=== PATIENT | male | born 1965 | race Caucasian/White ===

== ENCOUNTER 2023-11-28 15:21 | Outpatient (AMB) | payer OTHER, SELFPAY ==
--- NOTE | 2023-11-28 15:25 | MHC.PC.OV ---
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 Allergies No Known Allergies Allergy (Verified 11/28/23 15:40) Medication List - Last Reconciled 11/28/23 by OH Jones No Known Home Meds Tobacco use date assessed: 11/28/23 Dental Screening Dental Screen Date: 11/28/23 Did you have a dental visit in the last 12 months?: No Did you have a dental problem in the last 6 months where you did not have access to dental care?: No Was dental information given to patient?: No HPI HPI Comments History of Present Illness Details Patient is a 58-year-old male here to establish care. Patient has not seen a primary care provider in over 8 years. Most recent was in [facility]. Will obtain records Patient is due for TD booster will elect to get at local pharmacy. Patient will also get the shingles vaccine. Patient is due for labs including PSA will order today. Patient is due for colonoscopy, will refer. [facility] Medical History (Updated 11/28/23 @ 15:58 by OH Jones) Left hand pain Surgical History History of breast lump/mass excision Social History Housing: House Patient Tobacco Use Status: Former Tobacco user Years Smoked: 30 e-Cigarette/Vaping Use: Never Used service: No Current occupational status: employed Current occupational exposures/hazards: No Cognitive needs: No Hearing needs: No Vision needs: No Questionnaire PHQ-9 Over the last 2 weeks, how often have you been bothered by any of the following problems? 01580 - PHQ-9 Billing: Patient declined-do not bill Source: Developed by Drs. Scott Page, Nidhi Hsu, Luc Lee and colleagues, with an educational maura from [employer]. AUDIT C Alcohol Use Questionnaire (AUDIT-C) 1. How often do you have a drink containing alcohol?: Never 3. How often do you have six or more drinks on one occasion?: Never Total Score: 0 Score Reviewed/Action Taken: No JUAN ANTONIO-7 AMB Questionnaire JUAN ANTONIO-7 Assessment Billing JUAN ANTONIO-7 Assessment Tool: pt declined-do not bill Review of Systems Const All systems reviewed & are unremarkable except as noted in HPI and below ENT Denies dizziness Card Denies chest pain and Denies dyspnea Resp Denies cough, Denies dyspnea and Denies wheezing GI Denies diarrhea, Denies nausea and Denies vomiting Neuro Denies dizziness Psych Denies homicidal ideation and Denies suicidal ideation Endo Denies polydipsia and Denies polyuria Aller/Immun Denies wheezing Physical exam (Primary Care) Vital Signs: Last Vital Signs Pulse 84 11/28/23 15: BP 108/70 11/28/23 15:27 Pulse Ox 96 11/28/23 15:27 Oxygen Delivery Method Room Air 11/28/23 15:27 Care Plan Goal for BP management: Blood pressure stable. Tobacco/Smoking Status: Tobacco use Status Tobacco use date assessed 11/28/23 11/28/23 15:31 Patient Tobacco Use Status Former Tobacco user 11/28/23 15:31 e-Cigarette/Vaping Use Never Used 11/28/23 15:31 Const Other: Appearance: Alert.? Oriented X3.? No acute distress.? Head: Normocephalic, atraumatic, no step-offs or deformities Neck: Normal inspection.? Neck supple.? CVS: Normal heart rate and rhythm.? Pulses normal.? Respiratory: No respiratory distress.? Breath sounds normal.? Neuro: Oriented X 3.? Assessment and Plan Assessment & Plan (1) Encounter to establish care: Comment: Patient has not had primary care provider in 8 years. Will draw fasting labs. Will call patient with results. Patient will have follow-up in 2 months. Code(s): Z76.89 - Persons encountering health services in other specified circumstances Plan: Follow-up exam for physical in 2 months Orders: Orders PSA,Total (Free>4and<10) Today Z12.5 - Encounter for screening for malignant neoplasm of prostate Lipid Panel Today Z13.220 - Encounter for screening for lipoid disorders Vitamin D 25-OH (D2 and D3) Today Z13.21 - Encounter for screening for nutritional disorder UA CC w/rflx Micro + Cult Today Z13.89 - Encounter for screening for other disorder Complete Blood Count Auto Diff Today Z13.0 - Encounter for screening for diseases of the blood and blood-forming organs and certain disorders involving the immune mechanism Comprehensive Met. Panel Today Z91.89 - Other specified personal risk factors, not elsewhere classified Vitamin B6 Today Z13.21 - Encounter for screening for nutritional disorder Vitamin B12 Today Z13.21 - Encounter for screening for nutritional disorder TSH reflex Free T4 Today Z13.29 - Encounter for screening for other suspected endocrine disorder Referrals Gastroenterology Referral Z12.11 - Encounter for screening for malignant neoplasm of colon Coding Level of Care Code Est Pt Level 3 (65258) Diagnoses Encounter to establish care Z76.89 Time Spent (min) 20
[2023-11-28 15:27] VITALS: BP 108/70; PULSE 84; O2SAT 96
== END 2023-11-28 16:35 | disposition home or self-care (01) ==
PROVIDERS: Visit Provider Nurse Practitioner Primary Care
DX: Z76.89 Persons encountering health services in other specified circumstances (principal)
CPT/HCPCS: 99213

== ENCOUNTER 2023-12-02 06:12 | Outpatient (REF) | payer OTHER, SELFPAY ==
[2023-12-02 10:30] LABS: Appearance Urine Clear; Color Urine Yellow; Glucose Urine UA Negative (Negative); Leukocyte Esterase Urine Negative (Negative); Nitrite Urine Negative (Negative); PH 5.5 (5.0-9.0); Urine Blood Negative (Negative); Urine Ketones Negative (Negative); Urine Protein Negative (Neg-Trace)
[2023-12-02 10:42] LABS: MANUAL DIFF FLAG NO
[2023-12-02 10:51] LABS: Basophils Absolute Auto 0.1 X10*3/uL (0.0-0.2); Basophils Percent Auto 0.8 % (0-2); Eosinophils Absolute Auto 0.2 X10*3/uL (0.0-0.4); Eosinophils Percent Auto 2.8 % (0-4); Hematocrit 45.9 % (42.0-52.0); Hemoglobin 15.2 g/dl (14.0-18.0); Imm Gran Abs Auto 0.02 X10*3/uL (0.00-0.03); Imm Gran Pct Auto 0.3 % (0.0-0.4); Lymphocytes Absolute Auto 1.8 X10*3/uL (1.2-4.9); Lymphocytes Percent Auto 27.6 % (20-40); Mean Corpuscular HGB Conc 33.1 g/dl (31.0-36.0); Mean Corpuscular Hemoglobin 29.1 pg (27.0-33.0); Mean Corpuscular Volume 87.8 fL (80.0-98.0); Mean Platelet Volume 9.7 fL (9.4-12.4); Monocytes Absolute Auto 0.6 X10*3/uL (0.1-1.2); Monocytes Percent Auto 8.5 % (2-11); Neutrophils Absolute Auto 3.9 x10*3/uL (2.0-8.3); Platelet Count 251 X10*3/uL (160-400); Red Blood Count 5.23 X10*6/uL (4.60-5.80); White Blood Count 6.5 X10*3/uL (4.8-10.8)
[2023-12-02 11:39] LABS: Alanine Aminotransferase 24 U/L (0-40); Albumin Level 4.1 g/dL (3.5-5.0); Alkaline Phosphatase 67 U/L (39-117); Anion Gap 16 (12-20); Aspartate Amino Transferase 20 U/L (5-37); Bilirubin Total 0.6 mg/dL (0.0-1.0); Blood Urea Nitrogen 17 mg/dL (9-16); Calcium 9.5 mg/dL (8.4-10.2); Carbon Dioxide 25 mmol/L (22-29); Chloride 105 mmol/L (96-108); Cholesterol 250 mg/dL (<200); Estimated Glomerular Filt Rate > 60; Glucose Random 97 mg/dL (60-115); HDL Cholesterol 57 mg/dL (>40); LDL Cholesterol Calculated 174 mg/dL (<100); Potassium 4.6 mmol/L (3.3-5.1); Sodium 141 mmol/L (135-145); Total Protein 7.4 g/dL (6.5-8.0); Triglycerides 97 mg/dL (<150)
[2023-12-02 11:43] LABS: PSA,Total (Free>4and<10) 1.35 ng/mL (0.00-4.00)
[2023-12-02 11:46] LABS: Vitamin B12 395 pg/mL (200-900)
[2023-12-05 16:08] LABS: Vitamin D 25-OH, D2 <4 ng/mL; Vitamin D 25-OH, D3 21 ng/mL; Vitamin D 25-OH, Total 21 ng/mL (30-100)
[2023-12-06 15:14] LABS: Vitamin B6 18.2 ng/mL (2.1-21.7)
== END 2023-12-02 06:13 | disposition home or self-care (01) ==
LOC: HO.HMGCLDS 06:12
PROVIDERS: PCP Nurse Practitioner Primary Care; Visit Provider Nurse Practitioner Primary Care
DX: Z13.0 Encounter for screening for diseases of the blood and blood-forming organs and certain disorders involving the immune mechanism (principal); Z12.5 Encounter for screening for malignant neoplasm of prostate; Z91.89 Other specified personal risk factors, not elsewhere classified; Z13.220 Encounter for screening for lipoid disorders; Z13.29 Encounter for screening for other suspected endocrine disorder; Z13.89 Encounter for screening for other disorder; Z13.21 Encounter for screening for nutritional disorder
CPT/HCPCS: 36415; 80053; 80061; 81003; 82306; 82607; 84153; 84207; 84443; 85025

== ENCOUNTER 2024-01-16 14:48 | Outpatient (AMB) | payer OTHER, SELFPAY ==
--- NOTE | 2024-01-16 14:51 | A.OFFPC_ITS ---
Vital Signs 01/16/24 14:53 Height 5 ft 9 in Weight 223 lb BMI 32.9 BP 128/86 Blood Pressure Location Lt brachial Position Sitting Pulse 70 Pulse Source Pulse Oximeter Pulse Oximetry (%) 95 Oxygen Delivery Method Room Air Intake Visit Reasons: follow up Intake Note: pt is here for his follow up Allergies No Known Allergies Allergy (Verified 01/16/24 15:18) Medication List - Last Reconciled 01/16/24 by OH Jones No Known Home Meds Tobacco use date assessed: 01/16/24 Dental Screening Dental Screen Date: 01/16/24 Did you have a dental visit in the last 12 months?: Yes Did you have a dental problem in the last 6 months where you did not have access to dental care?: No Was dental information given to patient?: Patient has dentist HPI HPI Comments History of Present Illness Details Patient is a 58-year-old male in today for a follow-up regarding his labs. Patient was found to have elevated levels of cholesterol and triglycerides. Patient would not like to start medication at this time and would like to improve his diet and exercise which he feels there is a lot of room for improvement. Patient states he does not need nutritional counseling at this time as he has a good grasp on which foods to avoid. Patient was also found to be vitamin-D deficient. The will start taking vitamin D3 supplement 2000 units per day for the next 3 months and we will redraw. [facility] Medical History (Updated 01/16/24 @ 15:25 by OH Jones) Left hand pain Surgical History History of breast lump/mass excision Social History Housing: House Patient Tobacco Use Status: Former Tobacco user Years Smoked: 30 e-Cigarette/Vaping Use: Never Used service: No Current occupational status: employed Current occupational exposures/hazards: No Cognitive needs: No Hearing needs: No Vision needs: No Review of Systems Const All systems reviewed & are unremarkable except as noted in HPI and below Physical exam (Primary Care) Vital Signs: Last Vital Signs Pulse 70 01/16/24 14:53 BP 128/86 01/16/24 14:53 Pulse Ox 95 01/16/24 14:53 Oxygen Delivery Method Room Air 01/16/24 14:53 Care Plan Goal for BP management: Patient's blood pressure is controlled. BMI result Body Mass Index 32.9 Tobacco/Smoking Status: Tobacco use Status Tobacco use date assessed 01/16/24 01/16/24 14:56 Patient Tobacco Use Status Former Tobacco user 01/16/24 14:56 e-Cigarette/Vaping Use Never Used 01/16/24 14:56 Const Other: Appearance: Alert.? Oriented X3.? No acute distress.? Head: Normocephalic. Eyes: Conjunctiva white. ? Neck: Normal inspection.? Neck supple.? Respiratory: No respiratory distress.? Neuro: Oriented X 3.? Assessment and Plan Assessment & Plan (1) Upper back pain: Comment: Will order cervical spine x-ray. Code(s): M54.9 - Dorsalgia, unspecified (2) Lower back pain: Comment: Will order lumbar spine x-ray. Code(s): M54.50 - Low back pain, unspecified Qualifiers: Chronicity: unspecified Back pain laterality: unspecified Sciatica presence: with sciatica Sciatica laterality: sciatica of left side Qualified Code(s): M54.42 - Lumbago with sciatica, left side Plan: Will re-draw labs. Orders: Orders XR lumbar spine 2-3V Today M54.50 - Low back pain, unspecified XR cervical spine 3V Today M54.9 - Dorsalgia, unspecified Coding Level of Care Code Est Pt Level 3 (18995) Diagnoses Upper back pain M54.9 Low back pain with left-sided sciatica, unspecified back pain laterality, unspecified chronicity M54.42 Chronicity: unspecified Back pain laterality: unspecified Sciatica presence: with sciatica Sciatica laterality: sciatica of left side Time Spent (min) 26
[2024-01-16 14:53] VITALS: BP 128/86; PULSE 70; O2SAT 95; BMI 32.9
== END 2024-01-16 15:19 | disposition home or self-care (01) ==
PROVIDERS: Visit Provider Nurse Practitioner Primary Care
DX: M54.9 Dorsalgia, unspecified (principal); M54.42 Lumbago with sciatica, left side
CPT/HCPCS: 99213

== ENCOUNTER 2024-01-16 15:19 | Outpatient (REF) | payer OTHER, SELFPAY ==
--- NOTE | ~2024-01-16 | XR_ITS ---
EXAMINATION: XR CERVICAL SPINE XR LUMBAR SPINE CLINICAL INDICATION: Low back pain and neck pain. COMPARISON: None available. TECHNIQUE: 2 views of the cervical spine. 3 views of the lumbar spine. FINDINGS: CERVICAL SPINE: Diffuse demineralization. Moderate multilevel cervical spondylosis. Limited visualization of C7 due to overlying bony and soft tissue structures. Amorphous soft tissue calcifications in the right mid cervical region, likely vascular. LUMBAR SPINE: Multiple pelvic calcifications are likely vascular. 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 Diffuse demineralization. Multilevel lumbar spondylosis with moderate loss of disc space height at L4-L5 and L5-S1. Small rounded sclerotic focus overlying the inferior aspect of the L2 vertebral body on the lateral view likely correlates with a 7 mm right upper quadrant calcification. Differential considerations include possible gallstone, renal calcification, or other and dedicated views of the abdomen should be considered for further evaluation. Could represent a bony lesion versus soft tissue calcification. XR/XR cervical spine 2V IMPRESSION: 1. Moderate multilevel cervical spondylosis. 2. Moderate degenerative disc disease at L4-L5 and L5-S1. 3. 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 4. A 7 mm right upper quadrant calcification. Differential considerations include possible gallstone, renal calcification, or other and dedicated views of the abdomen should be considered for further evaluation. Represent a bony lesion, versus soft tissue calcification.
--- NOTE | ~2024-01-16 | XR_ITS ---
EXAMINATION: XR CERVICAL SPINE XR LUMBAR SPINE CLINICAL INDICATION: Low back pain and neck pain. COMPARISON: None available. TECHNIQUE: 2 views of the cervical spine. 3 views of the lumbar spine. FINDINGS: CERVICAL SPINE: Diffuse demineralization. Moderate multilevel cervical spondylosis. Limited visualization of C7 due to overlying bony and soft tissue structures. Amorphous soft tissue calcifications in the right mid cervical region, likely vascular. LUMBAR SPINE: Multiple pelvic calcifications are likely vascular. 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 Diffuse demineralization. Multilevel lumbar spondylosis with moderate loss of disc space height at L4-L5 and L5-S1. Small rounded sclerotic focus overlying the inferior aspect of the L2 vertebral body on the lateral view likely correlates with a 7 mm right upper quadrant calcification. Differential considerations include possible gallstone, renal calcification, or other and dedicated views of the abdomen should be considered for further evaluation. Could represent a bony lesion versus soft tissue calcification. XR/XR lumbar spine 2-3V IMPRESSION: 1. Moderate multilevel cervical spondylosis. 2. Moderate degenerative disc disease at L4-L5 and L5-S1. 3. 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 4. A 7 mm right upper quadrant calcification. Differential considerations include possible gallstone, renal calcification, or other and dedicated views of the abdomen should be considered for further evaluation. Represent a bony lesion, versus soft tissue calcification.
== END 2024-01-16 15:20 | disposition home or self-care (01) ==
LOC: HO.HMGCX 15:19
PROVIDERS: PCP Nurse Practitioner Primary Care; Visit Provider Nurse Practitioner Primary Care
DX: M54.50 Low back pain, unspecified (principal); M54.2 Cervicalgia
CPT/HCPCS: 72040; 72100

== ENCOUNTER 2024-02-06 14:42 | Outpatient (AMB) | payer OTHER, SELFPAY ==
[2024-02-06 14:58] VITALS: BP 118/76; PULSE 75; BMI 33.1
--- NOTE | 2024-02-06 14:58 | MHC.OFFVIS ---
Vital Signs 02/06/24 14:58 Height 5 ft 9 in Weight 223 lb 15.834 oz BMI 33.1 BP 118/76 Blood Pressure Location Lt brachial Position Sitting Pulse 75 Intake Visit Reasons: Colonoscopy Screening Intake Note: Scott presents to in office visit today as a new patient for colonoscopy screening. CC: Patient has never had a colonoscopy done before. He denies having any GI symptoms or concerns today. Gastroenterologist Required: No Accompanied by: Self / Same As Patient Allergies No Known Allergies Allergy (Verified 01/16/24 15:18) HPI HPI Colonoscopy Screening: Details: 58-YEAR-OLD male here for preprocedural meeting to discuss a screening colonoscopy. 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 He denies any bowel or upper GI problems.. There are no prior problems with anesthesia or sedation. He denies any cardiac or respiratory problems. NO ID problems. There is no known FHX or crc or polyps. [facility] Medical History Left hand pain Surgical History H/O partial adrenalectomy S/P correction of deviated nasal septum History of breast lump/mass excision Social History Housing: House Alcohol intake: never Patient Tobacco Use Status: Former Tobacco user Years Smoked: 30 e-Cigarette/Vaping Use: Never Used service: No Current occupational status: employed Current occupational exposures/hazards: No Cognitive needs: No Hearing needs: No Vision needs: No Review of Systems Const Denies fatigue, Denies fever(s), Denies night sweats, Denies poor appetite and Denies weight loss ENT Reports Normal hearing present, Denies dental pain, Denies dysphagia, Denies hearing loss, Denies mouth pain, Denies odynophagia, Denies throat swelling, Denies tongue swelling and Reports other (Dentition adequate) Card Reports no additional complaints Resp Reports no additional complaints GI Details: Denies abdominal pain, Denies melena, Denies bloating, Denies hematochezia, Denies constipation, Denies GI cramping, Denies dysphagia, Denies excessive flatus, Denies early satiety, Denies heartburn, Denies diarrhea, Denies nausea, Denies odynophagia, Denies vomiting and Denies hematemesis Skin/Breast Denies pruritus, Denies lesions, Denies rash and Denies jaundice Neuro Reports Normal hearing present and Denies Abnormal speech present Endo Denies fatigue Aller/Immun Denies throat swelling and Denies tongue swelling Physical Exam Vital Signs: Last Vital Signs Pulse 75 02/06/24 14:58 BP 118/76 02/06/24 14:58 BMI result Body Mass Index 33.1 Const General: cooperative, no acute distress, well developed and well groomed Nutritional Appearance: well nourished and obese Orientation/consciousness: oriented to person, oriented to place and oriented to time Limitations: No language barrier HEENT Head: Yes normocephalic and Yes atraumatic Eyes General: appearance normal, both eyes and all related structures Pupils: Equal, round and reactive pupils present Neck Neck: Yes normal visual inspection and Yes no lymphadenopathy Thyroid: Thyroid normal Resp Effort & Inspection: normal respiratory effort and able to speak in complete sentences Auscultation: clear to auscultation bilaterally Cardio Rate: regular rate Rhythm: regular rhythm Heart sounds: Normal, physiologic split S2 sound present Peripheral pulses: radial pulses present and posterior tibial pulses present GI Inspection: No distended, No Abdominal panniculus present and Yes obesity Palpation (GI): Soft to palpation, nontender, no guarding, not rigid and No hepatosplenomegaly present Percussion: Yes normal to percussion Auscultation: normal bowel sounds Rectal Exam - Male: Yes deferred Abdomen image: 1. surgical scar Skin General skin exam: no rashes or lesions noted, turgor normal, skin not dry, no jaundice, No spider nevi and no striae Rashes: no rashes Nails: normal Neuro General: oriented to person, oriented to place and oriented to time Cranial nerves: Yes Equal, round and reactive pupils present and Yes Normal hearing present Speech: No Abnormal speech present Extrem General: Yes normal to inspection, No clubbing, No cyanosis and No edema Psych Appearance: grossly normal and well kempt Mental Status: mental status grossly normal Speech and movement: Normal speech and movement present Affect: normal affect Attitude: cooperative Thought process: Normal thought process present and not confabulating Thought content: Normal thought content present Insight: Fair insight present (Psych) Judgement: Fair judgement present (Psych) Assessment & Plan Assessment & Plan (1) Pre-op examination: Code(s): Z01.818 - Encounter for other preprocedural examination Category: Medical Plan This is his first colonoscopy. He denies any bowel or upper GI problems.. There are no prior problems with anesthesia or sedation. He denies any cardiac or respiratory problems. NO ID problems. There is no known FHX or crc or polyps. Orders: Orders Colonoscopy - GI Use Only 02/06/24 Z01.818 - Encounter for other preprocedural examination Medications: New sod sulf-pot chloride-mag sulf 1.479-0.188- 0.225 gram (Sutab) PO PER PKG DIR for colonoscopy prep 24 tabs 0RF Coding Level of Care Code New Pt Level 3 (08510) Diagnoses Pre-op examination Z01.818
== END 2024-02-06 15:20 | disposition home or self-care (01) ==
PROVIDERS: PCP Nurse Practitioner Primary Care; Visit Provider Nurse Practitioner
DX: Z01.818 Encounter for other preprocedural examination (principal); Z12.11 Encounter for screening for malignant neoplasm of colon
CPT/HCPCS: S0285

== ENCOUNTER → 2024-02-06 14:42 | Outpatient (BNVA) | payer OTHER, SELFPAY | PROVIDERS: PCP Nurse Practitioner Primary Care; Visit Provider Nurse Practitioner ==